=== PATIENT | female | born 1985 | race Caucasian/White ===

== ENCOUNTER 2017-06-01 16:31 | Emergency (ER) | payer OTHER ==
[~2017-06-01] VITALS: Ht 177.8 cm; Wt 126.2 kg
[2017-06-01] MEDS ORDERED: INDOCIN25 MG PO (16:51)
[2017-06-01] MEDS ORDERED: PREDNISONE20 MG PO (16:51)
[2017-06-01] MEDS ORDERED: ULTRACET1 TABLET PO (16:51)
[2017-06-01] MEDS ORDERED: VALIUM5 MG PO (16:51)
[2017-06-01 17:18] VITALS: BP 144/89
== END 2017-06-01 17:31 | disposition home or self-care (01) ==
LOC: EME 16:31
DX: M54.41 Lumbago with sciatica, right side (principal); G89.29 Other chronic pain; Z98.1 Arthrodesis status; Z88.2 Allergy status to sulfonamides; Z88.6 Allergy status to analgesic agent
CPT/HCPCS: 99281; 99283; J7512

== ENCOUNTER 2017-12-23 13:32 | Emergency (ER) | payer OTHER ==
[~2017-12-23] VITALS: Ht 175.3 cm; Wt 135.0 kg
[~2017-12-23 13:32] MED LIST: INDOCIN25 MG PO; PREDNISONE20 MG PO; ULTRACET1 TABLET PO; VALIUM5 MG PO
[2017-12-23 13:35] VITALS: BP 164/90
== END 2017-12-23 15:56 | disposition home or self-care (01) ==
LOC: EME 13:32
DX: J02.9 Acute pharyngitis, unspecified (principal); Z88.8 Allergy status to other drugs, medicaments and biological substances; Z88.2 Allergy status to sulfonamides; R13.10 Dysphagia, unspecified
CPT/HCPCS: 87651 90; 99281; 99284; J1100